=== PATIENT | female | born 1930 | race Caucasian/White ===

== ENCOUNTER 2018-03-02 03:54 | Inpatient (IN) | payer OTHER, MEDICARE ==
[2018-03-02] VITALS (7 sets, daily range): BP systolic 125–140; BP diastolic 63–99
[~2018-03-02] VITALS: Wt 57.8 kg
--- NOTE | ~2018-03-02 | PR ---
[place], [place] PROGRESS NOTE NAME: JOEY VANCE [facility] #: [id number] UNIT #: [id number] ROOM: 510 DOCTOR: TEE TAY MD BIRTHDATE: [birth year] DOS: 03/03/2018 SUBJECTIVE: The patient is much better, awake, alert today and she is asymptomatic. OBJECTIVE: VITAL SIGNS: Blood pressure 114/66, heart rate 72 beats per minute, breathing 16 times per minute, temperature 98.6 degrees Fahrenheit. IMPRESSION: 1. The patient new onset of atrial fibrillation with controlled heart rate. CHADS/VASc score of 5 indicating that the patient is a higher risk for thromboembolism, but the patient also has a high risk for bleeding, so as per container repairer, the patient is too high risk for anticoagulation. 2. Chronic systolic type congestive heart failure. 3. Benign essential hypertension, being treated and controlled. 4. Late onset Alzheimer's type dementia, it is being followed. 5. Acute mental status change. The patient is more alert and awake now with treatment. 6. Urinary tract infection, it is being treated. 7. Pollen allergies, treated and controlled with loratadine. 8. Chronic constipation. The patient is being treated with Colace. 9. Glaucoma, treated with latanoprost eyedrops. 10. Benign essential hypertension, treated and controlled. The patient on amlodipine, clonidine and metoprolol. TEE TAY MD CM:PNTRANS 22 4 TEE TAY MD 03/04/18222 interface
--- NOTE | ~2018-03-02 | EKG ---
[place], [place] ELECTROCARDIOGRAM REPORT NAME: JOEY VANCE UNIT #: [id number] ROOM: 510 DOCTOR: OLIVIA DRAFT REPORT BIRTHDATE: [birth year] [facility] Test Date: 2018-03-02 Test Time: 04:07:33 Pat Name: JOEY VANCE Department: Room: 510 Gender: F Ludlow Machine Operator: : [id number] Requested By: TIFFANY CELESTE Order Number: [id number] Reading MD: Rudy Godinez MD Measurements Intervals [place] Rate: 115 P: NV: QRS: -16 QRSD: 101 T: 189 QT: 315 QTc: 436 Interpretive Statements Atrial fibrillation Borderline left axis deviation Abnormal R-wave progression, late transition Borderline repolarization abnormality Electronically Signed On 03-02-2018 8:45:13 PDT by Rudy Godinez MD CM:EKGRPT:ELECTROCARDIOGRAM REPORT [id number] TIFFANY RICKETTS DRAFT REPORT TIFFANY CELESTE DO
--- NOTE | ~2018-03-02 | PR ---
[place], [place] PROGRESS NOTE [facility] [id number] UNIT #: [id number] ROOM: 510 DOCTOR: DANISH MCLEAN MD BIRTHDATE: [birth year] DOS: 03/03/2018 CARDIOLOGY PROGRESS NOTE HISTORY OF PRESENT ILLNESS: The patient was seen at her bedside today 03/03/2018 for followup of her newly documented atrial fibrillation. Today, she is awake, alert and responsive. She is lying on her left side with her knees pulled up in a contractured position. She denies any chest pain or dyspnea, but she is only oriented to self. PHYSICAL EXAMINATION: VITAL SIGNS: Her pulse is 52 and irregularly irregular. Blood pressure is 113/63. She has temperature of 99.0. NECK: Supple. She has no jugular distention. Carotids are full. LUNGS: Respirations are unlabored. Her chest is clear. HEART: Irregularly irregular rhythm. ABDOMEN: Soft. EXTREMITIES: Showed no edema. IMPRESSION: 1. Newly documented atrial fibrillation, ventricular response is now controlled. 2. CHADS-VASc score of 5 indicating a high risk for future cardioembolic events. 3. History of systolic heart failure. 4. History of hypertension. 5. Severe dementia. PLAN: As noted yesterday, I did discuss further care of her atrial fibrillation and cardiac issues with her daughters. Even though she does have a strong indication for anticoagulation, she has multiple risks for bleeding and is very unlikely to achieve much benefit from anticoagulation. I therefore would continue to treat her with antiplatelet therapies only. She should be given diuretics as needed. Once again, her management should emphasize her comfort. We will sign off at this point, but remain available to see her at Dr. Baxter's request. I thank Dr. Baxter for asking our advice regarding her care. [place], [place] PROGRESS NOTE NAME: JOEY VANCE UNIT #: [id number] ROOM: 510 DOCTOR: DANISH MCLEAN MD BIRTHDATE: [birth year] DANISH MCLEAN MD CM:PNTRANS 1 [id number] DANISH MCLEAN MD 03/03/18 1244 interface
--- NOTE | ~2018-03-02 | WRIGHTHP ---
[place], [place] PATIENT HISTORY AND PHYSICAL EXAM NAME: JOEY VANCE [facility] #: [id number] UNIT #: [id number] ROOM: 510 DOCTOR: TEE TAY MD BIRTHDATE: [birth year] DOS: 03/02/2018 HISTORY OF PRESENT ILLNESS: 1. The patient is an 87-year-old female with a past medical history of systolic type compensated CHF with 35% left ventricular ejection fraction. 2. Advanced adult failure to thrive. 3. Hypertension. 4. Nicotine smoke dependence. 5. Pacemaker placement for bradycardia. 6. Mixed hyperlipidemia. 7. Alzheimer's type dementia. The patient presented to the Emergency Department with altered mental status. The patient appeared more confused and much weaker and was seen in the Emergency Department and found to have congestive heart failure with atrial fibrillation with rapid ventricular response, heart rate of 113 beats per minute. A CAT scan of the head was not performed. After admission, the patient's family wanted to maintain a DNR comfort code status. The patient wakes up, but she is confused and unable to provide much history. REVIEW OF SYSTEMS: RESPIRATORY: No recent increase in shortness of breath. GASTROINTESTINAL: No nausea, vomiting, diarrhea or constipation. CARDIOVASCULAR: No chest pains, but the patient did have tachycardia. FAMILY HISTORY: Noncontributory. HOME MEDICATIONS: Potassium, omeprazole, loratadine, hydroxyzine, aspirin, amlodipine, latanoprost eye drops, metoprolol, clonidine, meclizine and Colace. ALLERGIES: Known allergies to PENICILLIN, PROPOXYPHENE AND TYLENOL. PHYSICAL EXAMINATION: GENERAL: The patient does wake up, but is very confused and able to move all extremities. Otherwise, generalized weakness. HEENT AND NECK: Extraocular movements are intact. Sclerae are anicteric. Oral mucosa is moist and clean. No obvious facial weakness. Neck is supple without any lymphadenopathy. No thyromegaly. No JVD. No carotid arterial bruits. LUNGS: Clear to auscultation. No wheezing. No rhonchi. CARDIOVASCULAR SYSTEM: Heart rate is regular in rate and rhythm. S1 and S2 normally audible. No significant murmur or any other abnormal cardiac sounds. ABDOMEN: Soft, nontender. No obvious organomegaly. Bowel sounds are present. No obvious herniation. EXTREMITIES: Without significant cyanosis or edema. Warm to touch. CENTRAL NERVOUS SYSTEM: Alert and oriented x 3. Cranial nerves II-XII are intact. Speech is normal. The patient is able to move all extremities. Normal muscle strength. Deep tendon reflexes are equal on both sides. Plantars were downgoing. LABORATORY DATA: CT scan of the head ordered. BUN and creatinine 31 and 1.3. Lactic acid level of 3.1, came down to 2. Normal CBC, platelets. Urine [place], [place] PATIENT HISTORY AND PHYSICAL EXAM NAME: JOEY VANCE [facility] #: [id number] UNIT #: [id number] ROOM: [facility] DOCTOR: TEE TAY MD BIRTHDATE: [birth year] cultures growing E. coli sensitive to all antibiotics. IMPRESSION: 1. The patient presenting with acute mental status change. I will perform a CAT scan of her head and follow her closely, take bedsore precautions. Consult physical therapy, use air mattress and take fall precautions and perform every 2 hour turning. 2. Recent urinary tract infection appropriately treated. 3. Acute congestive heart failure with atrial fibrillation and rapid ventricular response. Cardiology is consulted to follow, heart rate has normalized. 4. Benign essential hypertension. The patient already on amlodipine, clonidine and metoprolol. 5. Gastroesophageal reflux disease. 6. Esophagitis. The patient on omeprazole. 7. Pollen allergies treated and controlled with loratadine, which has been continued. 8. Chronic constipation. Continue Colace for treatment. 9. Glaucoma, treated with latanoprost eye drops, which have been continued. TEE TAY MD CM:HISPHYS:PATIENT HISTORY AND PHYSICAL EXAMINATION 1125 1254 TEE TAY MD 03/02/18 1252 interface
--- NOTE | ~2018-03-02 | PR ---
[place], [place] PROGRESS NOTE [id number] #: [id number] ROOM: 510 DOCTOR: TEE TAY MD BIRTHDATE: [birth year] DOS: 03/04/2018 SUBJECTIVE: The patient looking better, more alert and awake than at admission. PHYSICAL EXAMINATION: GENERAL APPEARANCE: Generalized weakness and mental confusion. HEENT AND NECK: Exam within normal limits. CARDIOVASCULAR SYSTEM: Heart rate is regular in rate and rhythm. S1 and S2 normally audible. LUNGS: Clear to auscultation. ABDOMEN: Soft, nontender. No obvious organomegaly. Bowel sounds are present. EXTREMITIES: Without significant cyanosis or edema. IMPRESSION: 1. The patient with new onset of chronic atrial fibrillation with controlled heart rates now. The patient not a good candidate for anticoagulation as per her cadmium plater, Dr. Godinez. 2. Chronic systolic type congestive heart failure, compensated. 3. Benign essential hypertension, treated and controlled. 4. Late onset Alzheimer's type dementia, stable. The patient more alert. Acute change in mental status has improved. 5. POLLEN ALLERGIES, treated and controlled with loratadine. 6. Chronic constipation, being treated with Colace. The patient is moving her bowels. 7. Benign essential hypertension, treated and controlled with amlodipine, clonidine, and metoprolol. TEE TAY MD CM:PNTRANS 1107 [id number] TEE TAY MD 03/05/18 0453 interface
--- NOTE | ~2018-03-02 | DS ---
[place], [place] DISCHARGE SUMMARY NAME: JOEY VANCE UNIT #: [id number] ROOM: 510 DOCTOR: TEE TAY MD BIRTHDATE: [birth year] DOS: DISCHARGE DIAGNOSES: 1. The patient with atrial fibrillation, new onset of atrial fibrillation. 2. Chronic systolic type congestive heart failure. 3. Benign essential hypertension. 4. Late onset Alzheimer's type dementia. 5. POLLEN allergies. 6. Chronic constipation. 7. Benign essential hypertension. 8. Systolic type compensated CHF with 35% left ventricular ejection fraction. 9. Adult failure to thrive. 10. Nicotine smoke dependence. 11. Pacemaker placement for bradycardia. 12. Mixed hyperlipidemia. 13. Late onset Alzheimer's type dementia. The patient was admitted with increased weakness and mental confusion. She was found to be in systolic type, acute over chronic congestive heart failure with atrial fibrillation and rapid ventricular response with a heart rate of 113 beats per minute. After admission, the patient's heart rate was controlled, blood pressures stayed normal. The patient became more awake, alert and is doing much better now and is being discharged back to the snf. The patient was started on metoprolol to keep her heart rate controlled. The blood pressure is also staying normal. 1. Generalized anxiety disorder, treated with hydroxyzine as needed. 2. Chronic constipation, treated and controlled with stool softener, Colace. 3. Glaucoma, treated with latanoprost eyedrops. 4. Pollen allergies treated and controlled with loratadine. 5. Late onset Alzheimer's type dementia, treated with Namzaric. 6. Benign essential hypertension, treated and controlled. The patient is on clonidine, metoprolol, amlodipine. [place], [place] DISCHARGE SUMMARY NAME: JOEY VANCE UNIT #: [id number] ROOM: 510 DOCTOR: TEE TAY MD BIRTHDATE: [birth year] TEE TAY MD CM:DISCHARG [id number] TEE TAY MD 03/06/18 0303 interface
[~2018-03-02 03:54] MED LIST: ACETAMINOPHEN325 M2 PO; AMMONIUM LACTA237 ML TP; ANTIVERT25 MG PO; ARICEPT10 MG PO; ASPIRIN EC81 MG PO; CATAPRES0.1 MG PO; Duoneb 3ML 3 MG/3 ML INH; K-LEASE10 MEQ PO; LEVAQUIN750 MG PO; LEXAPRO20 MG PO; MEDROL DOSEPAK4 MG PO; METOPROLOL SR50 MG PO; MOM30 M1 PO; MOTRIN400 MG PO; NAMZARIC 28 MG1 EACH PO; NORVASC5 MG PO; PRILOSEC20 M1 PO; VISTARIL25 MG PO; VITAMIN D31000 I1 PO
[2018-03-02 04:22] LABS: BASO % 0.7 % (0.0-1.0); EOS % 0.2 % (1.0-4.0); HEMATOCRIT 43.9 % (37.0-47.0); HEMOGLOBIN 13.3 g/dl (12.0-16.0); LYMPH # 1.6 10*3/uL (1.3-4.4); LYMPH % 29.8 % (27.0-41.0); MEAN CELL VOLUME 80.4 fl (81.0-99.0); MEAN CORPUSCULAR HGB 24.4 pg (27.0-31.0); MEAN CORPUSCULAR HGB CONC 30.3 g/dl (33.0-37.0); MEAN PLATELET VOLUME 9.7 fl (9.6-12.3); MONO # 0.4 10*3/uL (0.1-1.0); MONO % 7.5 % (3.0-9.0); NEUT # 3.4 10*3/uL (2.3-7.9); NEUT % 61.4 % (47.0-73.0); PLATELET COUNT AUTOMATED 137 10*3/uL (130-400); RED BLOOD COUNT 5.46 10*6/uL (4.10-5.10); RED CELL DISTRI WIDTH 15.9 % (0-14.5); WHITE BLOOD COUNT 5.5 10*3/uL (4.8-10.8)
[2018-03-02 04:32] LABS: ACT PARTIAL THROMBO TIME 22.3 SECONDS (20.8-31.5)
[2018-03-02 04:39] LABS: ALBUMIN 3.2 gm/dl (3.1-4.5); ALKALINE PHOSPHATASE 90 U/L (45-117); BUN 31 mg/dl (7-24); CHLORIDE 109 mmol/L (98-107); CREATININE 1.27 mg/dL (0.55-1.02); POTASSIUM 4.2 mmol/L (3.5-5.1); SGOT/AST 16 IU/L (3-35); SGPT/ALT 15 U/L (12-78); SODIUM 139 mmol/L (136-145); TOTAL PROTEIN 8.5 gm/dL (6.4-8.2)
[2018-03-02 04:41] LABS: TROPONIN I < 0.015 ng/ml (<0.045)
[2018-03-02 04:59] LABS: BILIRUBIN NEGATIVE (NEGATIVE); BLOOD NEGATIVE (NEGATIVE); CLARITY CLEAR (CLEAR); COLOR YELLOW (YELLOW); GLUCOSE NEGATIVE (NEGATIVE); KETONE NEGATIVE (NEGATIVE); LEUKO ESTERASE NEGATIVE (NEGATIVE); NITRITE NEGATIVE (NEGATIVE); SPECIFIC GRAVITY 1.025 (1.005-1.030); UROBILINOGEN 0.2 E.U./dl (0.2-1.0)
[2018-03-02 05:08] LABS: RBC 0-2 rbc/hpf (0-2); WBC 0-2 wbc/hpf (0-5)
[2018-03-02] MEDS ORDERED: DULCOLAX STOOL100 M1 PO (06:57)
[2018-03-02] MEDS ORDERED: LATANOPROST2.5 ML OP (06:58)
[2018-03-02] MEDS ORDERED: CLARITIN10 MG PO (06:58)
[2018-03-02] MEDS ORDERED: LOPRESSOR50 M1 PO (07:00)
[2018-03-02] MEDS ORDERED: ACETAMINOPHEN500 M4 PO (09:48)
[2018-03-02] MEDS ORDERED: REMERON15 M2 PO (09:52)
[2018-03-03] VITALS: BP 131/83
[2018-03-03 08:00] VITALS: BP 113/63
[2018-03-03 09:07] LABS: HEMATOCRIT 43.1 % (37.0-47.0); HEMOGLOBIN 13.1 g/dl (12.0-16.0); MEAN CELL VOLUME 80.9 fl (81.0-99.0); MEAN CORPUSCULAR HGB 24.6 pg (27.0-31.0); MEAN CORPUSCULAR HGB CONC 30.4 g/dl (33.0-37.0); MEAN PLATELET VOLUME 10.3 fl (9.6-12.3); PLATELET COUNT AUTOMATED 132 10*3/uL (130-400); RED BLOOD COUNT 5.33 10*6/uL (4.10-5.10); RED CELL DISTRI WIDTH 16.1 % (0-14.5); WHITE BLOOD COUNT 6.4 10*3/uL (4.8-10.8)
[2018-03-03 09:28] LABS: CREATININE 1.22 mg/dL (0.55-1.02); POTASSIUM 3.8 mmol/L (3.5-5.1)
[2018-03-03 10:17] LABS: PLATELET SUFFICIENCY NORMAL (NORMAL); TOTAL CELLS COUNTED 100 #CELLS
[2018-03-03 12:00] VITALS: BP 111/78
[2018-03-03 16:00] VITALS: BP 114/66
[2018-03-03 20:00] VITALS: BP 112/70
[2018-03-04] VITALS: BP 125/72
[2018-03-04 07:05] LABS: CREATININE 1.17 mg/dL (0.55-1.02)
[2018-03-04 08:00] VITALS: BP 117/71
[2018-03-04 12:00] VITALS: BP 110/73
[2018-03-04 16:00] VITALS: BP 94/57
[2018-03-04 20:49] VITALS: BP 114/72
[2018-03-05 06:52] LABS: CREATININE 1.09 mg/dL (0.55-1.02)
[2018-03-05 08:00] VITALS: BP 110/59
[2018-03-05 12:00] VITALS: BP 107/54
[2018-03-05 16:00] VITALS: BP 111/66; BP 78/49
== END 2018-03-05 18:22 | DRG 308 ==
LOC: ED 03:54 → EDHOLD 05:32 → 5E 05:32
PROVIDERS: Internal Medicine; Student in an Organized Health Care Education/Training Program
DX: I48.91 Unspecified atrial fibrillation (principal); I50.23 Acute on chronic systolic (congestive) heart failure; E87.2 Acidosis; N39.0 Urinary tract infection, site not specified; I11.0 Hypertensive heart disease with heart failure; G30.1 Alzheimer's disease with late onset; F02.80 Dementia in other diseases classified elsewhere, unspecified severity, without behavioral disturbance, psychotic disturbance, mood disturbance, and anxiety; K59.09 Other constipation; R62.7 Adult failure to thrive; E78.2 Mixed hyperlipidemia; F17.200 Nicotine dependence, unspecified, uncomplicated; K21.0 Gastro-esophageal reflux disease with esophagitis; F41.1 Generalized anxiety disorder; Z66 Do not resuscitate; Z51.5 Encounter for palliative care; H40.9 Unspecified glaucoma; Z79.899 Other long term (current) drug therapy; Z88.5 Allergy status to narcotic agent; Z95.0 Presence of cardiac pacemaker; Z88.0 Allergy status to penicillin; Z88.8 Allergy status to other drugs, medicaments and biological substances; Z79.01 Long term (current) use of anticoagulants; Z91.048 Other nonmedicinal substance allergy status; Z82.49 Family history of ischemic heart disease and other diseases of the circulatory system; Z82.3 Family history of stroke; Z79.82 Long term (current) use of aspirin

== ENCOUNTER 2019-04-30 17:53 | Emergency (ER) | payer OTHER ==
[~2019-04-30] VITALS: Ht 162.5 cm; Wt 59.0 kg
[~2019-04-30 17:53] MED LIST changes: +ACETAMINOPHEN500 M4 PO; +CLARITIN10 MG PO; +DULCOLAX STOOL100 M1 PO; +LATANOPROST2.5 ML OP; +LOPRESSOR50 M1 PO; +REMERON15 M2 PO
[2019-04-30 20:35] VITALS: BP 112/68
== END 2019-04-30 21:06 | disposition other institution (70) ==
LOC: ED 17:53
DX: S00.12XA Contusion of left eyelid and periocular area, initial encounter (principal); S40.012A Contusion of left shoulder, initial encounter; M16.11 Unilateral primary osteoarthritis, right hip; F03.90 Unspecified dementia, unspecified severity, without behavioral disturbance, psychotic disturbance, mood disturbance, and anxiety; I48.91 Unspecified atrial fibrillation; I11.0 Hypertensive heart disease with heart failure; I50.20 Unspecified systolic (congestive) heart failure; Z88.0 Allergy status to penicillin; Z88.6 Allergy status to analgesic agent; Z88.8 Allergy status to other drugs, medicaments and biological substances; Z79.899 Other long term (current) drug therapy; W19.XXXA Unspecified fall, initial encounter; Y93.89 Activity, other specified; Y92.128 Other place in nursing home as the place of occurrence of the external cause; Y99.8 Other external cause status